=== PATIENT | female | born 1965 | race Caucasian/White ===

== ENCOUNTER 2019-05-25 20:14 | Emergency (ER) | payer MEDICARE ==
[~2019-05-25] VITALS: Ht 170.2 cm; Wt 79.4 kg
[2019-05-25 20:46] LABS: BILIRUBIN,URINE NEGATIVE (NEG); CLARITY,URINE CLEAR; COLOR,URINE YELLOW; NITRITE,URINE NEGATIVE (NEG); PROTEIN,URINE NEGATIVE (NEG-TRACE); UROBILINOGEN,URINE 0.2 mg/dL (0.2 mg/dL)
[2019-05-25 20:55] LABS: BACTERIA,URINE FEW /HPF (0-FEW); HYALINE CASTS, URINE FEW /HPF; RBC,URINE 0 /HPF (0-2); SQUAMOUS EPITHELIAL CELL,UR MOD /LPF; WBC,URINE OCC /HPF (0-4)
[2019-05-25] MEDS ORDERED: DEXAMETHASONE SOD PHOS 20 MG/5 ML VIAL. IV ONE (21:00)
[2019-05-25] MEDS ORDERED: IV NORMAL SALINE 1000ML BAG 1,000 ML IV ONE (21:00)
[2019-05-25 21:06] LABS: AMPHETAMINE/METHAMPHETAMINE NEG (NEG); BARBITURATES NEG (NEG); BENZODIAZEPINES NEG (NEG); CANNABINOIDS NEG (NEG); COCAINE NEG (NEG); METHADONE NEG (NEG); OPIATES NEG (NEG); PHENCYCLIDINE NEG (NEG)
[2019-05-25] MEDS ORDERED: KETOROLAC 15 MG/ML VIAL. IV ONE (21:30)
--- NOTE | 2019-05-25 21:42 | PHYS DOC ---
Past Medical History Past Medical History: Anxiety, Asthma, Bipolar, Depression, Diverticulitis, Gallstones, IBS, Other Additional Past Medical Histor: colitis, PANIC ATTACKS (REBECCA CRAMER APRN) Past Surgical History: Cholecystectomy, Hysterectomy, Tonsillectomy, Other Additional Past Surgical Histo: L ovary removed, bilat lumpectomy, ABD SURGERY (REBECCA CRAMER APRN) Alcohol Use: Occasionally Drug Use: None (REBECCA CRAMER APRN) Adult General Chief Complaint Chief Complaint: FLANK PAIN HPI HPI Patient is a 54 year old female with history of kidney infections, who presents to the ED stating she's had chronic flank pain that got worse today. Patient is from [place]. She states she is visiting in [facility] today. She states she is currently being treated with IV antibiotics as an outpatient through a PICC line at [facility] which is on the [place] side. She does not know the name of the antibiotics. Patient denies any fever, nausea, vomiting. She is requesting something for pain. Patient was informed we will treat her pain with nonnarcotic medications. (REBECCA CRAMER APRN) Review of Systems Review of Systems Constitutional: Denies fever or chills [] Eyes: Denies change in visual acuity, redness, or eye pain [] HENT: Denies nasal congestion or sore throat [] Respiratory: Denies cough or shortness of breath [] Cardiovascular: No additional information not addressed in HPI [] GI: Denies abdominal pain, nausea, vomiting, bloody stools or diarrhea [] : Reports right flank pain-chronic. Denies dysuria or hematuria [] Musculoskeletal: Denies back pain or joint pain [] Integument: Denies rash or skin lesions [] Neurologic: Denies headache, focal weakness or sensory changes [] All other systems were reviewed and found to be within normal limits, except as documented in this note. (REBECCA CRAMER APRN) Current Medications Current Medications Current Medications Medications (Trade) Dose Ordered Sig/Juliet Start Time Stop Time Status Last Admin Dose Admin Dexamethasone Sodium Phosphate (Decadron) 10 mg 1X ONCE 05/25/19 21:00 05/25/19 21:01 DC 05/25/19 22:15 10 MG Ketorolac Tromethamine (Toradol 15mg Vial) 15 mg 1X ONCE 05/25/19 21:30 05/25/19 21:31 DC 05/25/19 22:15 15 MG Ondansetron HCl (Zofran) 4 mg 1X ONCE 05/25/19 23:00 05/25/19 23:01 DC 05/25/19 22:49 4 MG Sodium Chloride 1,000 ml @ 1,000 mls/hr 1X ONCE 05/25/19 21:00 05/25/19 21:59 DC 05/25/19 22:07 1,000 MLS/HR (NOEL WHITING MD) Allergies Allergies Allergies Coded Allergies Type Severity Reaction Last Updated Verified aspirin Allergy Severe STOPS BREATHING 05/25/19 Yes cephalexin Allergy Intermediate 05/05/15 Yes ciprofloxacin Allergy Intermediate 05/28/15 No erythromycin base Allergy Intermediate 05/05/15 Yes hydrocodone Allergy Intermediate 05/05/15 Yes hydromorphone Allergy Intermediate 05/28/15 Yes sulfamethoxazole Allergy Intermediate 05/05/15 Yes trimethoprim Allergy Intermediate 05/05/15 Yes (NOEL WHITING MD) Physical Exam Physical Exam Constitutional: Well developed, well nourished, no acute distress, non-toxic appearance. [] HENT: Normocephalic, atraumatic, bilateral external ears normal, oropharynx moist, no oral exudates, nose normal. [] Eyes: PERRLA, EOMI, conjunctiva normal, no discharge. [] Neck: Normal range of motion, no tenderness, supple, no stridor. [] Cardiovascular:Heart rate regular rhythm, no murmur [] Lungs & Thorax: Bilateral breath sounds clear to auscultation [] Abdomen: Bowel sounds normal, soft, no tenderness, no masses, no pulsatile ma sses. [] Skin: Warm, dry, no erythema, no rash. [] Back: No tenderness, mild right CVA tenderness. [] Extremities: No tenderness, no cyanosis, no clubbing, ROM intact, no edema. PICC line noted to the left upper extremity, no signs of infection over the PICC line site. Neurologic: Alert and oriented X 3, normal motor function, normal sensory function, no focal deficits noted. [] Psychologic: Affect normal, judgement normal, mood normal. [] (REBECCA CRAMER APRN) Current Patient Data Vital Signs Vital Signs Date Time Temp Pulse Resp B/P (MAP) Pulse Ox O2 Delivery O2 Flow Rate FiO2 05/25/19 21:55 98.7 77 18 144/84 (104) 98 Room Air 98.7 (NOEL WHITING MD) Lab Values Laboratory Tests Test 05/25/19 20:32 05/25/19 22:20 Urine Collection Type Unknown Urine Color Yellow Urine Clarity Clear Urine pH 5.0 Urine Specific [place] >=1.030 Urine Protein Negative mg/dL (NEG-TRACE) Urine Glucose (UA) Negative mg/dL (NEG) Urine Ketones (Stick) Negative mg/dL (NEG) Urine Blood Negative (NEG) Urine Nitrite Negative (NEG) Urine Bilirubin Negative (NEG) Urine Urobilinogen Dipstick 0.2 mg/dL (0.2 mg/dL) Urine Leukocyte Esterase Negative (NEG) Urine RBC 0 /HPF (0-2) Urine WBC Occ /HPF (0-4) Urine Squamous Epithelial Cells Mod /LPF Urine Bacteria Few /HPF (0-FEW) Urine Hyaline Casts Few /HPF Urine Mucus Marked /LPF Urine Opiates Screen Neg (NEG) Urine Methadone Screen Neg (NEG) Urine Barbiturates Neg (NEG) Urine Phencyclidine Screen Neg (NEG) Urine Amphetamine/Methamphetamine Neg (NEG) Urine Benzodiazepines Screen Neg (NEG) Urine Cocaine Screen Neg (NEG) Urine Cannabinoids Screen Neg (NEG) Urine Ethyl Alcohol Neg (NEG) White Blood Count 10.2 x10^3/uL (4.0-11.0) Red Blood Count 4.07 x10^6/uL (3.50-5.40) Hemoglobin 13.3 g/dL (12.0-15.5) Hematocrit 38.6 % (36.0-47.0) Mean Corpuscular Volume 95 fL (79-100) Mean Corpuscular Hemoglobin 33 pg (25-35) Mean Corpuscular Hemoglobin Concent 34 g/dL (31-37) Red Cell Distribution Width 14.7 % (11.5-14.5) H Platelet Count 318 x10^3/uL (140-400) Neutrophils (%) (Auto) 71 % (31-73) Lymphocytes (%) (Auto) 21 % (24-48) L Monocytes (%) (Auto) 5 % (0-9) Eosinophils (%) (Auto) 2 % (0-3) Basophils (%) (Auto) 1 % (0-3) Neutrophils # (Auto) 7.3 x10^3/uL (1.8-7.7) Lymphocytes # (Auto) 2.2 x10^3/uL (1.0-4.8) Monocytes # (Auto) 0.5 x10^3/uL (0.0-1.1) Eosinophils # (Auto) 0.2 x10^3/uL (0.0-0.7) Basophils # (Auto) 0.1 x10^3/uL (0.0-0.2) Sodium Level 142 mmol/L (136-145) Potassium Level 3.5 mmol/L (3.5-5.1) Chloride Level 104 mmol/L (98-107) Carbon Dioxide Level 28 mmol/L (21-32) Anion Gap 10 (6-14) Blood Urea Nitrogen 23 mg/dL (7-20) H Creatinine 0.9 mg/dL (0.6-1.0) Estimated GFR (Cockcroft-Gault) 65.5 BUN/Creatinine Ratio 26 (6-20) H Glucose Level 96 mg/dL (70-99) Calcium Level 9.3 mg/dL (8.5-10.1) Total Bilirubin 0.3 mg/dL (0.2-1.0) Aspartate Amino Transferase (AST) 24 U/L (15-37) Alanine Aminotransferase (ALT) 26 U/L (14-59) Alkaline Phosphatase 80 U/L (46-116) Total Protein 7.7 g/dL (6.4-8.2) Albumin 3.9 g/dL (3.4-5.0) Albumin/Globulin Ratio 1.0 (1.0-1.7) Ethyl Alcohol Level < 10 mg/dL (0-10) Laboratory Tests 05/25/19 22:20 Laboratory Tests 05/25/19 22:20 (NOEL WHITING MD) EKG EKG [] (REBECCA CRAMER APRN) Radiology/Procedures Radiology/Procedures [] (REBECCA CRAMER APRN) Course & Med Decision Making Course & Med Decision Making Pertinent Labs and Imaging studies reviewed. (See chart for details) This is a 54-year-old female patient presenting to the ED today complaining of chronic right flank pain. Patient states she is being treated for UTI with IV antibiotics as an outpatient at [facility] on the [place] side. She states she is visiting in [facility] and her pain got worse hence she came to the ED to be ev aluated. She is requesting something for pain, she was informed we will not give her any narcotics for pain. Patient's CBC, CMP, UA-negative for any acute findings.vitals are stable Patient was discharged to home. Instructed to continue following up with her own doctor at [facility] tomorrow. (REBECCA CRAMER APRN) Course & Med Decision Making Staff Physician Addendum: I was working in the ER during the course of this patient's visit. I was available for consultation as needed, but I was not directly involved in the care of this patient. (NOEL WHITING MD) Dragon Disclaimer Dragon Disclaimer This electronic medical record was generated, in whole or in part, using a voice recognition dictation system. (REBECCA CRAMER APRN) Departure Departure Impression: Primary Impression: Chronic flank pain Disposition: 01 HOME, SELF-CARE Condition: STABLE Referrals: UNKNOWN PCP NAME (PCP) Follow up with your doctor at [facility] tomorrow Patient Instructions: Flank Pain, [id number] Additional Instructions: You were evaluated in the emergency room for flank pain. Please continue your IV antibiotic treatments as well as following up with your doctor at [facility] tomorrow. REBECCA CRAMER APRN May 25, 2019 21:42 NOEL WHITING MD May 25, 2019 23:14
[2019-05-25 22:38] LABS: BASO # 0.1 x10^3/uL (0.0-0.2); BASO % 1 % (0-3); EOS # 0.2 x10^3/uL (0.0-0.7); EOS % 2 % (0-3); HEMATOCRIT 38.6 % (36.0-47.0); HEMOGLOBIN 13.3 g/dL (12.0-15.5); LYMPH # 2.2 x10^3/uL (1.0-4.8); LYMPH % 21 % (24-48); MEAN CORPUSCULAR HEMOGLOBIN 33 pg (25-35); MEAN CORPUSCULAR HGB CONC 34 g/dL (31-37); MEAN CORPUSCULAR VOLUME 95 fL (79-100); MONO # 0.5 x10^3/uL (0.0-1.1); MONO % 5 % (0-9); NEUT # 7.3 x10^3/uL (1.8-7.7); NEUT % 71 % (31-73); PLATELET COUNT 318 x10^3/uL (140-400); RED BLOOD COUNT 4.07 x10^6/uL (3.50-5.40); RED CELL DISTRIBUTION WIDTH 14.7 % (11.5-14.5); WHITE BLOOD COUNT 10.2 x10^3/uL (4.0-11.0)
[2019-05-25 22:46] LABS: CALCIUM 9.3 mg/dL (8.5-10.1); CREATININE 0.9 mg/dL (0.6-1.0); GFR 65.5; POTASSIUM 3.5 mmol/L (3.5-5.1)
[2019-05-25 22:52] LABS: ALBUMIN 3.9 g/dL (3.4-5.0); TOTAL BILIRUBIN 0.3 mg/dL (0.2-1.0); TOTAL PROTEIN 7.7 g/dL (6.4-8.2)
[2019-05-25] MEDS ORDERED: ONDANSETRON PF 4 MG/2 ML VIAL. IV ONE (23:00)
[2019-05-25 23:43] VITALS: BP 117/71
== END 2019-05-25 23:44 | disposition home or self-care (01) ==
LOC: ER 20:31
DX: G89.29 Other chronic pain (principal); R10.9 Unspecified abdominal pain; F31.9 Bipolar disorder, unspecified; J45.909 Unspecified asthma, uncomplicated; K58.9 Irritable bowel syndrome, unspecified; Z90.49 Acquired absence of other specified parts of digestive tract; Z90.89 Acquired absence of other organs; Z98.890 Other specified postprocedural states; Z88.1 Allergy status to other antibiotic agents; Z88.5 Allergy status to narcotic agent; Z88.2 Allergy status to sulfonamides; Z88.6 Allergy status to analgesic agent
CPT/HCPCS: 36415; 80053; 80307; 81001; 85025; 96374; 96375; 99284; G0480; J1100; J1885; J2405; J7030; 99283